=== PATIENT | female | born 1955 | race Caucasian/White ===

== ENCOUNTER 2020-08-16 10:02 | Emergency (ER) | payer BC, OTHER ==
[~2020-08-16] VITALS: Ht 167 cm; Wt 90.7 kg
[2020-08-16] MEDS ORDERED: ALPR0.254 (10:30)
[2020-08-16] MEDS ORDERED: LOSA100T57 (10:30)
[2020-08-16] MEDS ORDERED: SERT-414 (10:30)
[2020-08-16] MEDS ORDERED: KETOROLAC 30 MG/ML VIAL IVP ONE (10:45)
[2020-08-16] MEDS ORDERED: ONDANSETRON 4 MG/2 ML (SDV) Z0FRAN IVP ONE (10:45)
[2020-08-16] MEDS ORDERED: NS IV 1000 ML 1,000 ML IV SCH (10:45)
[2020-08-16 11:12] LABS: BASOPHILS # (AUTO) 0.1 10^3/uL (0.0-0.1); BASOPHILS % (AUTO) 1 % (0-10); EOSINOPHILS # (AUTO) 0.1 10^3/uL (0.0-0.3); EOSINOPHILS % (AUTO) 1 % (0-10); HEMATOCRIT 44 % (35-52); HEMOGLOBIN 13.9 g/dL (11.5-16.0); LYMPHOCYTES # (AUTO) 1.6 10^3/uL (1.0-4.0); LYMPHOCYTES % (AUTO) 16 % (12-44); MEAN CORPUSCULAR HEMOGLOBIN 28 pg (25-34); MEAN CORPUSCULAR HGB CONC 32 g/dL (32-36); MEAN CORPUSCULAR VOLUME 88 fL (80-99); MEAN PLATELET VOLUME 11.1 fL (9.0-12.2); MONOCYTES # (AUTO) 0.8 10^3/uL (0.0-1.0); MONOCYTES % (AUTO) 8 % (0-12); NEUTROPHILS # (AUTO) 7.3 10^3/uL (1.8-7.8); NEUTROPHILS % (AUTO) 73 % (42-75); PLATELET COUNT 190 10^3/uL (130-400)
--- NOTE | 2020-08-16 11:12 | ED Back Pain ---
General Chief Complaint: Back Problems Stated Complaint: BACK PAIN Nursing Triage Note: pt to ed via pov from home with complaints of l back pain that radiates to the front starting yesterday Nursing Sepsis Screen: No Definite Risk Source of Information: Patient Exam Limitations: No Limitations (MICHAEL SABILLON) History of Present Illness Date Seen by Provider: Aug 16, 2020 Time Seen by Provider: 10:56 Initial Comments Kala is a 64 y/o female that presents with left sided lower back pain for one day, which is 10/10 and sharp in nature with radiation to her left flank. The onset was sudden and she has had no relief with Tylenol. Denies similar events in the past. Associated nausea without vomiting. Certain positions helps with pain. Denies: F/C, Chest pain, SOB, Abdominal pain, Constipation, Dysuria, Vaginal discharge, blood in stool or urine, changes in bowel or bladder function, LE and pelvic parasthesia and LE Muscle weakness. PMH includes HTN, Depression and Anxiety. Denies hx of kidney stones. Location: Lumbar Spine, Paraspinous Muscles Timing/Duration: 1/2 Hour Severity: Moderate Pain/Injury Location: Back Radiation: Other (Left flank ) Method of Injury: Unknown Associated Symptoms: No tingling in legs/feet, No sensory/motor loss, No loss of bladder control, No loss of bowel control (MICHAEL SABILLON) Allergies and Home Medications Allergies Coded Allergies: levofloxacin (Verified Allergy, Unknown, 08/16/20) lisinopril (Verified Allergy, Unknown, 08/16/20) Home Medications Cyclobenzaprine HCl 10 Mg Tablet, 10 MG PO Q8H PRN for SPASMS Prescribed by: CRISTINA BREAUX on 08/16/20 1327 Hydrocodone/Acetaminophen 1 Each Tablet, 1 TAB PO Q4H PRN for PAIN-MODERATE (5- 7) Prescribed by: CRISTINA BREAUX on 08/16/20 1328 Prednisone 20 Mg Tab, 40 MG PO DAILY Prescribed by: CRISTINA BREAUX on 08/16/20 1327 Patient Home Medication List Home Medication List Reviewed: Yes (CRISTINA AGUILLON MD) Review of Systems Constitutional: no symptoms reported EENTM: no symptoms reported Respiratory: No cough; short of breath (Due to Anxiety and Pain ) Cardiovascular: no symptoms reported Gastrointestinal: no symptoms reported Genitourinary: no symptoms reported Musculoskeletal: back pain, joint pain (RT knee) Skin: no symptoms reported Psychiatric/Neurological: Anxiety, Depressed (RIDGE,MICHAEL MED STUDEN) Past Begstpd-Xtwhki-Jtbuec Hx Patient Social History Alcohol Use: Denies Use Smoking Status: Never a Smoker Recent Infectious Disease Expo: No Recent Hopitalizations: No (RIDGE,MICHAEL MED STUDEN) Seasonal Allergies Seasonal Allergies: No (RIDGE,MICHAEL MED STUDEN) Past Medical History Surgeries: Yes (r shoulder, hiatal hernia,) Hysterectomy, Orthopedic Respiratory: No Cardiac: Yes Hypertension Neurological: No Genitourinary: No Gastrointestinal: No Musculoskeletal: No Endocrine: No HEENT: No Cancer: No Psychosocial: Yes Anxiety, Depression Integumentary: No Blood Disorders: No (RIDGE,MICHAEL MED STUDEN) Physical Exam Vital Signs Vital Signs - First Documented 08/16/20 10:24 Temp 36.8 Pulse 75 Resp 20 B/P (MAP) 189/86 (120) Pulse Ox 94 (CRISTINA AGUILLON MD) Vital Signs Capillary Refill : Less Than 3 Seconds (RIDGE,MICHAEL MED STUDEN) Height, Weight, BMI Height: '" Weight: lbs. oz. kg; 32.00 BMI Method: General Appearance: Anxious, Moderate Distress HEENT: PERRL/EOMI, Moist Mucous Membranes Neck: Full Range of Motion, Normal Inspection, Non Tender Cardiovascular: Regular Rate, Rhythm, No Edema, Normal Peripheral Pulses Respiratory: Chest Non Tender, Lungs Clear, No Respiratory Distress Peripheral Pulses: 2+ Dorsalis Pedis (R), 2+ Left Dors-Pedis (L), 2+ Radial Pulses (R), 2+ Radial Pulses (L) Gastrointestinal: Non Tender, Soft; No Guarding Back: No CVA Tenderness, Vertebral Tenderness (Left Lower Lumbar area) Extremity: No Calf Tenderness, No Pedal Edema, Other (Sensory intact BL in LE, Muscle strength intact BL LE 5/5) Neurologic/Psychiatric: Alert, Oriented x3 Skin: Normal Color, Warm/Dry Lymphatic: No Adenopathy Negative Lloyds sign and McBurneys. (RIDGE,MICHAEL MED STUDEN) Progress/Results/Core Measures Results/Orders Lab Results Laboratory Tests Test 08/16/20 11:06 08/16/20 12:27 Range/Units White Blood Count 10.0 4.3-11.0 10^3/uL Red Blood Count 4.97 3.80-5.11 10^6/uL Hemoglobin 13.9 11.5-16.0 g/dL Hematocrit 44 35-52 % Mean Corpuscular Volume 88 80-99 fL Mean Corpuscular Hemoglobin 28 25-34 pg Mean Corpuscular Hemoglobin Concent 32 32-36 g/dL Red Cell Distribution Width 13.5 10.0-14.5 % Platelet Count 190 130-400 10^3/uL Mean Platelet Volume 11.1 9.0-12.2 fL Immature Granulocyte % (Auto) 0 % Neutrophils (%) (Auto) 73 42-75 % Lymphocytes (%) (Auto) 16 12-44 % Monocytes (%) (Auto) 8 0-12 % Eosinophils (%) (Auto) 1 0-10 % Basophils (%) (Auto) 1 0-10 % Neutrophils # (Auto) 7.3 1.8-7.8 10^3/uL Lymphocytes # (Auto) 1.6 1.0-4.0 10^3/uL Monocytes # (Auto) 0.8 0.0-1.0 10^3/uL Eosinophils # (Auto) 0.1 0.0-0.3 10^3/uL Basophils # (Auto) 0.1 0.0-0.1 10^3/uL Immature Granulocyte # (Auto) 0.0 0.0-0.1 10^3/uL Sodium Level 138 135-145 MMOL/L Potassium Level 4.4 3.6-5.0 MMOL/L Chloride Level 104 98-107 MMOL/L Carbon Dioxide Level 21 21-32 MMOL/L Anion Gap 13 5-14 MMOL/L Blood Urea Nitrogen 15 7-18 MG/DL Creatinine 0.81 0.60-1.30 MG/DL Estimat Glomerular Filtration Rate > 60 BUN/Creatinine Ratio 19 Glucose Level 100 70-105 MG/DL Calcium Level 9.1 8.5-10.1 MG/DL Corrected Calcium 9.0 8.5-10.1 MG/DL Total Bilirubin 0.7 0.1-1.0 MG/DL Aspartate Amino Transf (AST/SGOT) 36 H 5-34 U/L Alanine Aminotransferase (ALT/SGPT) 38 0-55 U/L Alkaline Phosphatase 56 40-136 U/L Total Protein 8.1 6.4-8.2 GM/DL Albumin 4.1 3.2-4.5 GM/DL Urine Color YELLOW Urine Clarity SL CLOUDY Urine pH 5.5 5-9 Urine Specific [place] 1.025 H 1.016-1.022 Urine Protein NEGATIVE NEGATIVE Urine Glucose (UA) NEGATIVE NEGATIVE Urine Ketones NEGATIVE NEGATIVE Urine Nitrite NEGATIVE NEGATIVE Urine Bilirubin NEGATIVE NEGATIVE Urine Urobilinogen 0.2 < = 1.0 MG/DL Urine Leukocyte Esterase NEGATIVE NEGATIVE Urine RBC (Auto) NEGATIVE NEGATIVE Urine RBC RARE /HPF Urine WBC RARE /HPF Urine Squamous Epithelial Cells 5-10 /HPF Urine Crystals NONE /LPF Urine Bacteria MODERATE H /HPF Urine Casts NONE /LPF Urine Mucus NEGATIVE /LPF Urine Culture Indicated NO (CRISTINA AGUILLON MD) My Orders Orders - CRISTINA AGUILLON MD Ua Culture If Indicated (08/16/20 10:40) Cbc With Automated Diff (08/16/20 10:42) Comprehensive Metabolic Panel (08/16/20 10:42) Ed Iv/Invasive Line Start (08/16/20 10:42) Ns Iv 1000 Ml (Sodium Chloride 0.9%) (08/16/20 10:45) Ondansetron Injection (Zofran Injectio (08/16/20 10:45) Ketorolac Injection (Toradol Injection) (08/16/20 10:45) Orphenadrine Inj (Ed Only) (Norflex Inje (08/16/20 11:45) Fentanyl Injection (Sublimaze Injection (08/16/20 13:15) Hydrocodone/Apap 5/325 Tablet (Lortab 5 (08/16/20 13:15) (CRISTINA AGUILLON MD) Medications Given in ED Current Medications Medications Dose Ordered Sig/Sebastian Route Start Time Stop Time Status Last Admin Dose Admin Acetaminophen/ Hydrocodone Bitart 1 tab ONCE ONCE PO 08/16/20 13:15 08/16/20 13:16 DC 08/16/20 13:18 1 TAB Fentanyl Citrate 50 mcg ONCE ONCE IVP 08/16/20 13:15 08/16/20 13:16 DC 08/16/20 13:15 50 MCG Ketorolac Tromethamine 15 mg ONCE ONCE IVP 08/16/20 10:45 08/16/20 10:46 DC 08/16/20 11:05 15 MG Ondansetron HCl 4 mg ONCE ONCE IVP 08/16/20 10:45 08/16/20 10:46 DC 08/16/20 11:04 4 MG Orphenadrine Citrate 60 mg ONCE ONCE IV 08/16/20 11:45 08/16/20 11:46 DC 08/16/20 11:58 60 MG (CRISTINA AGUILLON MD) Vital Signs/I&O 08/16/20 08/16/20 10:24 13:33 Temp 36.8 Pulse 75 87 Resp 20 16 B/P (MAP) 189/86 (120) 180/93 Pulse Ox 94 99 (CRISTINA AGUILLON MD) Blood Pressure Mean: 120 Progress Progress Note #1: Time: 10:50 Progress Note Patient feeling anxious, nausea and in pain. Started patient on Ketoralac and Zofran. Ordered fluids along with UA, CBC and CMP. Spoke to the patient about this being more MSK in nature. Will review labs and discuss further workup if needed. Patient agreed with current plan. Progress Note #2: Time: 12:38 Progress Note Muscle relaxer added. Patients anxiety and pain are improved. CBC and CMP have come back negative for concerning pathology. Awaiting UA results. (MICHAEL SABILLON) Progress Note : Progress Note Work-up was essentially unremarkable. No urine RBCs to suggest ureteral stone. Labs are otherwise unremarkable. Patient did have improvement with Toradol and Norflex. She was additionally given fentanyl and hydrocodone to help her on her trip back to [place]. Medications were prescribed. Discharge instructions were reviewed. (CRISTINA AGUILLON MD) Departure Impression Primary Impression: Low back pain Qualified Codes: M54.5 - Low back pain Disposition: 01 HOME, SELF-CARE Condition: Improved Departure-Patient Inst. Decision time for Depature: 13:10 (CRISTINA AGUILLON MD) Referrals: YANETH DELEON DO (PCP/Family) Primary Care Physician Patient Instructions: Low Back Pain in Adults Add. Discharge Instructions: Use ibuprofen or Aleve for primary pain management. Add hydrocodone for pain not controlled by Aleve or ibuprofen. Use cyclobenzaprine as prescribed for spasms. Complete the prednisone as prescribed. Take early in the day and with food or milk to avoid sleep disturbance or stomach upset. Avoid heavy lifting or excessive bending until pain resolves. Follow-up with your primary care provider soon as possible. Call with questions or concerns. Return to care if you have worsening symptoms, especially if you develop weakness in your legs, numbness in your groin, or bowel or bladder control problems. All discharge instructions reviewed with patient and/or family. Voiced under standing. Scripts Prednisone (Prednisone) 20 Mg Tab 40 MG PO DAILY, #6 TAB Prov: CRISTINA AGUILLON MD 08/16/20 Hydrocodone/Acetaminophen (Hydrocodone-Acetamin 5-325 mg) 1 Each Tablet 1 TAB PO Q4H PRN for PAIN-MODERATE (5-7), #10 TAB Prov: CRISTINA AGUILLON MD 08/16/20 Cyclobenzaprine HCl (Cyclobenzaprine HCl) 10 Mg Tablet 10 MG PO Q8H PRN for SPASMS, #15 TAB 0 Refills Prov: CRISTINA AGUILLON MD 08/16/20 Medical Student Attestation and Attending Note: I have personally interviewed and examined this patient along with Michael Givens, MS 4. I have reviewed student documentation including history, physical, and assessments. I agree with the documentation except where otherwise noted. Exam: General: Alert, oriented, mild distress, well developed, obese HEENT: Normocephalic and atraumatic Heart: Regular rate and rhythm without murmur Lungs: Clear to auscultation bilaterally with normal effort Abdomen: Soft, nontender, nondistended, normal bowel sounds Back: Tenderness over the lower lumbar spine region, left greater than right, no CVA tenderness Neuropsych: Alert, oriented, no focal deficits Skin: Warm and dry without rashes (CRISTINA AGUILLON MD) MICHAEL SABILLON [facility] Aug 16, 2020 11:12 CRISTINA AGUILLON MD Aug 16, 2020 13:28
[2020-08-16 11:29] LABS: ALBUMIN 4.1 GM/DL (3.2-4.5); CHLORIDE 104 MMOL/L (98-107); POTASSIUM 4.4 MMOL/L (3.6-5.0); SODIUM 138 MMOL/L (135-145)
[2020-08-16 11:30] LABS: CALCIUM 9.1 MG/DL (8.5-10.1)
[2020-08-16 11:31] LABS: GLUCOSE 100 MG/DL (70-105); TOTAL PROTEIN 8.1 GM/DL (6.4-8.2)
[2020-08-16 11:32] LABS: CARBON DIOXIDE 21 MMOL/L (21-32)
[2020-08-16 11:33] LABS: BILIRUBIN,TOTAL 0.7 MG/DL (0.1-1.0)
[2020-08-16 11:35] LABS: ALKALINE PHOSPHATASE 56 U/L (40-136); CREATININE SERUM 0.81 MG/DL (0.60-1.30); GFR ESTIMATED > 60
[2020-08-16 11:36] LABS: BUN/CREATININE RATIO 19
[2020-08-16 11:38] LABS: ALANINE AMINOTRANSFERASE 38 U/L (0-55)
[2020-08-16] MEDS ORDERED: ORPHENADRINE 60 MG/2 ML (NORFLEX) AMP (ED ONLY) IV ONE (11:45)
[2020-08-16 12:34] LABS: BILIRUBIN,URINE NEGATIVE (NEGATIVE); CLARITY,URINE SL CLOUDY; COLOR,URINE YELLOW; GLUCOSE, URINE (UA) NEGATIVE (NEGATIVE); KETONES,URINE NEGATIVE (NEGATIVE); LEUKOCYTE ESTERASE ,URINE NEGATIVE (NEGATIVE); NITRITE,URINE NEGATIVE (NEGATIVE); PH,URINE 5.5 (5-9); PROTEIN,URINE NEGATIVE (NEGATIVE)
[2020-08-16 13:01] LABS: BACTERIA,URINE MODERATE /HPF; RBC,URINE RARE /HPF; WBC,URINE RARE /HPF
[2020-08-16] MEDS ORDERED: HYDROcodone/APAP 5 MG/325 MG (LORTAB) TAB PO ONE (13:15)
[2020-08-16] MEDS ORDERED: fentaNYL INJECTION 100 MCG/2 ML AMP IVP ONE (13:15)
[2020-08-16] MEDS ORDERED: PRD20T PO (13:27)
[2020-08-16] MEDS ORDERED: ACHD5005 PO (13:27)
[2020-08-16] MEDS ORDERED: CYCL10TA9 PO (13:27)
[2020-08-16 13:33] VITALS: BP 180/93
== END 2020-08-16 13:33 | disposition home or self-care (01) ==
LOC: ER 10:04
DX: M54.5 Low back pain (principal); F41.9 Anxiety disorder, unspecified; F32.9 Major depressive disorder, single episode, unspecified; Z88.1 Allergy status to other antibiotic agents; Z88.8 Allergy status to other drugs, medicaments and biological substances; Z79.52 Long term (current) use of systemic steroids
CPT/HCPCS: 36415; 80053; 81000; 85025